=== PATIENT | male | born 1960 | race Caucasian/White ===

== ENCOUNTER → 2017-11-01 16:09 | Outpatient (CLI) | payer OTHER, SELFPAY ==
--- NOTE | 2017-11-01 16:16 | MRI_ITS ---
STUDY: MRI BRAIN WITHOUT CONTRAST REASON FOR EXAM: Male, 57 years old. Dizziness and cephalgia. TECHNIQUE: Standardized multiplanar fat and water weighted pulse sequences were obtained. COMPARISON: None. FINDINGS: There is moderate cerebral atrophy with widening of the extra-axial spaces and ventricular dilatation. There are multiple confluent white matter hyperintensities, distributed throughout the deep white matter tracts of the cerebral hemispheres, consistent with severe chronic white matter ischemic changes. Normal bilateral basal ganglia. Normal thalami. There is no extra-axial fluid accumulation. Normal flow voids within the major intracranial circulation suggesting patency by spin echo criteria. Normal sella turcica, pituitary gland, infundibular stalk, optic chiasm and hypothalamus. Normal tectal plate and pineal gland. Normal midbrain, glenroy and medulla. There is large old infarction in the right cerebellar hemisphere. Small old infarctions are seen in the left cerebellar hemisphere. Normal basal cisterns. Normal bilateral temporal bones. Normal bilateral internal auditory canals. No demonstrated orbital abnormality, within the constraints of a routine brain study. Normal visualized paranasal sinuses. Normal calvarium and skull base. Normal visualized soft tissue structures. Normal visualized upper cervical spine. MRI/Brain without Contrast IMPRESSION: Involutional changes of the brain, as described above. 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 Electronically Signed: Oswaldo Osborn MD at 0:01 EDT Tel , Service support ,
== END ==
PROVIDERS: Family Provider Family Medicine; PCP Family Medicine; Visit Provider Nurse Practitioner Acute Care
DX: R42 Dizziness and giddiness (principal); R51 Headache
CPT/HCPCS: 70551

== ENCOUNTER → 2017-11-07 08:11 | Outpatient (CLI) | payer OTHER, SELFPAY ==
[2017-11-07 10:35] LABS: AST(SGOT) 20 U/L (15-37); Alanine Aminotransfer ALT/SGPT 24 U/L (16-61); Albumin, Serum 3.7 g/dL (3.2-5.0); Alkaline Phosphatase 60 U/L (45-117); Anion Gap 8 (5-15); BUN 22 mg/dL (7-18); BUN/Creat Ratio 26.3 RATIO (10-20); Calcium,Total 9.4 mg/dL (8.5-10.1); Chloride 103 mmol/L (98-107); Cholesterol 177 mg/dL (200); Creatinine, Serum 0.84 mg/dL (0.70-1.30); EST Glomerular Filtration Rate 100 mL/min (>60); Est Glom Filt Rate - Afr Amer 121 mL/min (>60); Globulin 3.7 g/dL (2.2-4.2); Glucose 123 mg/dL (74-106); High Density Lipoprotein 58 mg/dL; Protein, Total 7.4 g/dL (6.4-8.2); Sodium Level 141 mmol/L (136-145); Triglycerides 40 mg/dL; Very Low Density Lipoprotein 8 mg/dL (5-40)
== END ==
PROVIDERS: Family Provider Family Medicine; PCP Family Medicine; Visit Provider Family Medicine
DX: E11.9 Type 2 diabetes mellitus without complications (principal)
CPT/HCPCS: 36415; 80053; 80061

== ENCOUNTER 2018-04-15 15:30 | Outpatient (RCR) | payer OTHER, SELFPAY ==
--- NOTE | 2018-03-11 16:52 | HP.PTEVAL_ITS ---
Patient's Visit Information JOE RUIZ is a 58 year old M referred to Physical Therapy by Junior Huerta with a diagnosis of R shld weakness and h/o CVA in 2016. Date of Evaluation: 03/11/18 Physical Therapist: Carlie Kulkarni - Visit Plan Frequency: 2x /Week Duration: 4 Weeks Plan: 2X/ week for 4 weeks for R Shld PROM (especially IR/ER), AAROM, AROM, scapular strength, RC strength with HEP and modalities if needed - Subjective Findings: Pt has been having touble with R RC for about 5 years now. He started noticing it with working with a lot of lifting and it started to get harder for him to lift. Feel pain on the lateral side of the arm with lifting and cant raise arm greater than 90 degrees without pain. He has no pain with his R arm being stationary..... Hard to fall asleep as he will have to move it . It does not wake him up at night. He is R handed. He does more lifting with his L hand now due to the pain. No N&T. He has some neck pain but it iis not related. 2 years ago he had a stroke and had PT. It basically just affect equalibrium. - Pain R arm pain Pain Intensity (Out of 10): 3 - Objective R shld AROM: flex 106, shld abd 95, 20 degrees ER. L shld AROM: flex 150, abd 155, IR T12, 35 degrees ER. R shld MMT: ER 3+/5, IR 4-/5, Flex and abd 4-/5 within available ROM. L shld MMT ER, IR , Flex, ABd 4+/5. Able to move R shoulder PROm greater than AROM especially overhead motions. Tight R PROM IR and ER with increase pain at both end ranges. + empty can in avaiable range for weakness and some pain. + Bilat scapular winging. Palpation: tender under R acromion and R deltioid area. Pt has +scapular winging (R worse than L) - Goals Goal 1:: I HEP Goal Time Frame: 4-6 Weeks Goal 2:: Decrease R shld pain to less than 1/10 with using his R arm with ADL's and light lifting Goal Time Frame: 4-6 Weeks Goal 3:: Increase R shoulder AROM (at time of eval: flex 106, shld abd 95, 20 degrees ER) Goal Time Frame: 4-6 Weeks Goal 4:: Increase R shld MMT: ( at time of eval: ER 3+/5, IR 4-/5, Flex and abd 4-/5 within available ROM) Goal Time Frame: 4-6 Weeks - Rehabilitation Potential Rehabilitation Potential: Good - Anticipated Interventions Patient/Client Instruction: Educate patient on: Condition For the Purpose of:: To decrease pain, To increase ROM, To improve nutrient delivery to tissue, To improve muscle performance and motor function, To improve ability to perform ADL's, To increase tolerance to activity/condition/position, To improve performance and independence with ADL's, To improve ability of physical actions for home/community/work/leisure, To improve health of tissue, To decrease soft tissue restriction, To increase flexibility/ROM Therapeutic Exercise to Include: Strength training, Postural training, Flexibilty training, Passive ROM, Active ROM, Scapular Strength/Stabilization For the Purpose of:: To decrease pain, To increase ROM, To improve nutrient delivery to tissue, To improve muscle performance and motor function, To improve ability to perform ADL's, To increase tolerance to activity/condition/position, To improve ability of physical actions for home/community/work/leisure, To i mprove health of tissue, To decrease soft tissue restriction, To increase flexibility/ROM Manual Therapy Techniques to Include: Passive ROM For the Purpose of:: To increase ROM IF ES: Yes Cryotherapy (ice pack, ice massage): Yes For the Purpose of:: To decrease pain Thank you for the opportunity to evaluate your patient. For Medicare and Medicare HMO plans, please review the plan of care and approve it. It will need to be FAXED BACK to us at [phone] for Medicare purposes. For Medicare only, by signing this I certify the plan of care. Please let me know if there are questions or concerns regarding this plan of care. Physician Signature: Date:
--- NOTE | 2018-04-15 16:05 | HP.PTDCSUM ---
HP - PT D/C Summary It has been my pleasure to treat JOE RUIZ under orders from Yimi Huerta MD, for the diagnosis of R shld weakness and h/o CVA in 2016 for a total of 5 visit(s). Discharge Date: 04/15/18 Please see the following information for a summary of their discharge status. - Subjective Subjective: Pt reports that his back muscles...points to mid trap region is painful. he reports that he can reach behind him without an issue. Pt wishes to continue with HEP - Pain R arm pain Pain Intensity (Out of 10): 3 mid trap pain Pain Intensity (Out of 10): 7 - Overall Improvement % Improvement: 80 - Objective Objective/Function: R shld AROM: 124 degrees flexion, 130 degrees abd, ER 45 degrees, PSIS IR. Tight R mid trap....did some MT and it reduced some in tightness - Goals Goal 1:: I HEP Goal Progress: Goal Met Goal 2:: Decrease R shld pain to less than 1/10 with using his R arm with ADL's and light lifting Goal Progress: Progressing Goal 3:: Increase R shoulder AROM (at time of eval: flex 106, shld abd 95, 20 degrees ER) Goal Progress: Goal Met Goal 4:: Increase R shld MMT: ( at time of eval: ER 3+/5, IR 4-/5, Flex and abd 4-/5 within available ROM) Goal Progress: Progressing - Plan Plan: 2X/ week for 4 weeks for R Shld PROM (especially IR/ER), AAROM, AROM, scapular strength, RC strength with HEP and modalities if needed - D/C Information Discharge Comments: DC PT to HEP per pt request to do HEP If there are questions or concerns regarding this patient's physical therapy, please feel free to call me at [phone]. Thank you for the referral of this patient. Sincerely, Carlie Kulkarni, MPT
== END 2018-04-15 19:00 | disposition home or self-care (01) ==
LOC: PT 15:30
PROVIDERS: Family Provider Family Medicine; PCP Family Medicine; Referring Provider Family Medicine; Visit Provider Family Medicine
DX: R29.898 Other symptoms and signs involving the musculoskeletal system (principal); Z86.73 Personal history of transient ischemic attack (TIA), and cerebral infarction without residual deficits
CPT/HCPCS: 97110; 97140; 97161; 97530

== ENCOUNTER → 2018-05-07 16:15 | Outpatient (CLI) | payer OTHER, SELFPAY ==
[2018-05-07 18:21] LABS: ALB/GLOB Ratio 1.1 RATIO (0.9-2.4); AST(SGOT) 13 U/L (15-37); Alanine Aminotransfer ALT/SGPT 23 U/L (16-61); Albumin, Serum 3.8 g/dL (3.2-5.0); Alkaline Phosphatase 83 U/L (45-117); Anion Gap 8 (5-15); BUN 24 mg/dL (7-18); BUN/Creat Ratio 31.2 RATIO (10-20); Calcium,Total 9.5 mg/dL (8.5-10.1); Chloride 104 mmol/L (98-107); Cholesterol 175 mg/dL (200); Creatinine, Serum 0.77 mg/dL (0.70-1.30); EST Glomerular Filtration Rate 110 mL/min (>60); Est Glom Filt Rate - Afr Amer 133 mL/min (>60); Globulin 3.5 g/dL (2.2-4.2); Glucose 124 mg/dL (74-106); High Density Lipoprotein 54 mg/dL; Potassium 4.4 mmol/L (3.5-5.1); Protein, Total 7.3 g/dL (6.4-8.2); Sodium Level 140 mmol/L (136-145); Thyroid Stim Hormone (TSH) 2.34 uIU/mL (0.358-3.74); Triglycerides 107 mg/dL; Very Low Density Lipoprotein 21 mg/dL (5-40)
== END ==
PROVIDERS: Family Provider Family Medicine; PCP Family Medicine; Visit Provider Family Medicine
DX: E11.9 Type 2 diabetes mellitus without complications (principal)
CPT/HCPCS: 36415; 80053; 80061; 84403; 84443

== ENCOUNTER → 2019-04-21 08:00 | Outpatient (CLI) | payer OTHER, SELFPAY ==
[2019-04-21 10:56] LABS: AST(SGOT) 15 U/L (15-37); Alanine Aminotransfer ALT/SGPT 22 U/L (16-61); Albumin, Serum 3.7 g/dL (3.2-5.0); Alkaline Phosphatase 68 U/L (45-117); Anion Gap 5 (5-15); BUN 23 mg/dL (7-18); BUN/Creat Ratio 24.5 RATIO (10-20); Calcium,Total 9.5 mg/dL (8.5-10.1); Chloride 104 mmol/L (98-107); Cholesterol 181 mg/dL (200); Creatinine, Serum 0.94 mg/dL (0.70-1.30); EST Glomerular Filtration Rate 87 mL/min (>60); Est Glom Filt Rate - Afr Amer 106 mL/min (>60); Globulin 3.8 g/dL (2.2-4.2); Glucose 161 mg/dL (74-106); High Density Lipoprotein 56 mg/dL; PSA,Total - Annual Screen 0.81 ng/mL (0.00-4.00); Potassium 4.4 mmol/L (3.5-5.1); Protein, Total 7.5 g/dL (6.4-8.2); Sodium Level 138 mmol/L (136-145); Triglycerides 66 mg/dL; Very Low Density Lipoprotein 13 mg/dL (5-40)
== END ==
PROVIDERS: Family Provider Family Medicine; PCP Family Medicine; Referring Provider Family Medicine; Visit Provider Family Medicine
DX: E11.9 Type 2 diabetes mellitus without complications (principal); Z12.5 Encounter for screening for malignant neoplasm of prostate
CPT/HCPCS: 36415; 80053; 80061; 84153; G0103

== ENCOUNTER → 2020-01-19 12:29 | Outpatient (CLI) | payer OTHER, SELFPAY ==
--- NOTE | 2020-01-19 12:48 | RAD_ITS ---
STUDY: X-RAY - LUMBAR SPINE REASON FOR EXAM: Male, 59 years old. fall, low back pain, bilat feet numbness TECHNIQUE: 5 view(s) of the lumbar spine were obtained. COMPARISON: None FINDINGS: Normal lumbar lordosis. There is no substantial scoliosis. There is a normal alignment of the vertebrae. Normal vertebral bodies and endplates. Normal disc space heights. The soft tissue structures are unremarkable. RAD/L/S Spine Min 4 Views IMPRESSION: Normal x-ray examination of the lumbar spine. Electronically Signed: Cesar Saenz, at 10:28 EDT Tel , Service support ,
== END ==
LOC: MTRAD 12:30
PROVIDERS: PCP Family Medicine; Referring Provider Family Medicine; Visit Provider Family Medicine
DX: M54.9 Dorsalgia, unspecified (principal)
CPT/HCPCS: 72110

== ENCOUNTER → 2020-03-04 08:05 | Outpatient (CLI) | payer OTHER, SELFPAY ==
[2020-03-04 11:10] LABS: AST(SGOT) 16 U/L (15-37); Alanine Aminotransfer ALT/SGPT 24 U/L (16-61); Albumin, Serum 3.6 g/dL (3.2-5.0); Alkaline Phosphatase 72 U/L (45-117); Anion Gap 3 (5-15); BUN 20 mg/dL (7-18); BUN/Creat Ratio 21.8 RATIO (10-20); Calcium,Total 9.3 mg/dL (8.5-10.1); Chloride 105 mmol/L (98-107); Cholesterol 173 mg/dL (200); Creatinine, Serum 0.92 mg/dL (0.70-1.30); EST Glomerular Filtration Rate 89 mL/min (>60); Est Glom Filt Rate - Afr Amer 108 mL/min (>60); Globulin 3.6 g/dL (2.2-4.2); Glucose 159 mg/dL (74-106); High Density Lipoprotein 52 mg/dL; Potassium 4.1 mmol/L (3.5-5.1); Protein, Total 7.2 g/dL (6.4-8.2); Sodium Level 138 mmol/L (136-145); Triglycerides 63 mg/dL; Very Low Density Lipoprotein 13 mg/dL (5-40)
== END ==
PROVIDERS: PCP Family Medicine; Referring Provider Family Medicine; Visit Provider Family Medicine
DX: E78.5 Hyperlipidemia, unspecified (principal)
CPT/HCPCS: 36415; 80053; 80061

== ENCOUNTER 2020-03-08 15:30 | Outpatient (RCR) | payer OTHER, SELFPAY ==
--- NOTE | 2020-02-03 09:41 | HP.PTEVAL_ITS ---
Patient's Visit Information JOE RUIZ is a 59 year old M referred to Physical Therapy by Dr. Yimi Huerta MD with a diagnosis of BACK ACHE. Date of Evaluation: 02/03/20 Physical Therapist: Brian Forte, PT, Cert MDT, OCS - Visit Plan Frequency: 2x /Week Duration: 4 Weeks Plan: PT INTERVENTIONS MARK EX'S,POSTURAL EX'S,MANUAL THERAPY ,PROGRESS TO DLS ABD /BACK ,MODALTIES - Subjective This 59 y/o male presents to physical therapy with back pain.Patient has LBP for 5 years. Patient symptoms inscidous onset of pain. Patient has parathesia knee to foot. Patient seen DR did x-rays -. Patient fall on back 3 years ago at [facility] on ice. Location pain symmtrical lumbar. Aggraveting factors standing ,walking ,lifting bending affects job demands. Patient alleviating factors rest. Bowel/bladder-. Coughing/sneezing-, Patient has had no prior PT . Patient symptoms affects job demnads and housework tasks.Patient symptoms afects QOL. SOCIAL: single. VOCATION: [employer] - Pain Bilateral Back Pain Intensity (Out of 10): 7 Pain Intensity Range: 10 - Objective POSTURE: mild foward posture. GAIT: reciprocal pattern increase foot slap right side from h/o stroke. NEURO: C/O parathesia knee to feet,reflexes L3-4,L4-5,L5-S1 1/3. PALAPTION: symmtrical. MMT: quads/hams 4-/5,hip flexion 3+/5 ,ankle 4/5. LUMBAR ROM: flexion mod severe ,extension mod severe ,side glides mod loss. FLEXABLITY: hams min tight - Special Tests L/S Slump test left side: Negative L/S Slump test right side: Negative L/S Left Straight Leg Raise: Negative L/S Right Straight Leg Raise: Negative Lumbar Standing: Flexion - Mechanical Response: No effect Lumbar Standing: Flexion - Symptoms During Testing: Increases Lumbar Standing: Flexion - Symptoms After Testing: Worse Lumbar Standing: Extension - Mechanical Response: No effect Lumbar Standing: Extension - Symptoms During Testing: Increases Lumbar Standing: Extension - Symptoms After Testing: No worse Lumbar Standing: Right Side Glides - Mechanical Response: No effect Lumbar Standing: Right Side Casa - Symptoms During Testing: No effect Lumbar Standing: Right Side Casa - Symptoms After Testing: No effect Lumbar Standing: Left Side Casa - Mechanical Response: No effect Lumbar Standing: Left Side Casa - Symptoms During Testing: No effect Lumbar Standing: Left Side Casa - Symptoms After Testing: No effect Lumbar Lying: Flexion - Mechanical Response: No effect Lumbar Lying: Flexion - Symptoms During Testing: No effect Lumbar Lying: Flexion - Symptoms After Testing: No effect Lumbar Lying: Extension - Mechanical Response: No effect Lumbar Lying: Extension - Symptoms During Testing: Increases Lumbar Lying: Extension - Symptoms After Testing: Better - Goals Goal 1:: Patient to be I with HEP. Goal Time Frame: 4-6 Weeks Goal 2:: Patient to improve posture/body mechanics for function Goal Time Frame: 4-6 Weeks Goal 3:: Patient to improve lumbar ROM for function of recovery. Goal Time Frame: 4-6 Weeks Goal 4:: Patient to decrease lumbar pain by 50% or > to improve function and QOL Goal Time Frame: 4-6 Weeks Goal 5:: Patient to increase strength of bilateral hips 4-/5 to improve function. Goal Time Frame: 4-6 Weeks Goal 6:: Patient to improve back owestry score by 5 points or > to improve QOL. Goal Time Frame: 4-6 Weeks - Rehabilitation Potential Physical Therapy Diagnosis: This patient has possible derrangement with symptoms worse with flexion and improved with extension and mechanical response with extension and flexion with less pain and improved with posture correction thus benifit from skilled PT. Rehabilitation Potential: Good - Anticipated Interventions Patient/Client Instruction: Educate patient on: Condition, Plan of Care For the Purpose of:: To decrease pain, To increase ROM, To improve muscle performance and motor function, To improve ability to perform ADL's, To increase tolerance to activity/condition/position, To improve performance and independence with ADL's, To improve ability of physical actions for home/community/work/leisure, To improve health of tissue, To decrease soft tissue restriction, To increase flexibility/ROM, To reduce risk of recurrence, To improve ability to perform tasks related to life management Therapeutic Exercise to Include: Strength training, Body mechanics, Postural training, Flexibilty training, Dynamic Lumbar Stabilization, aMrk Exercises For the Purpose of:: To decrease pain, To increase ROM, To improve muscle performance and motor function, To improve ability to perform ADL's, To increase tolerance to activity/condition/position, To improve ability of physical actions for home/community/work/leisure, To improve health of tissue, To decrease soft tissue restriction, To increase flexibility/ROM, To reduce risk of recurrence, To improve ability to perform tasks related to life management TENS: Yes IF ES: Yes Cryotherapy (ice pack, ice massage): Yes Thermo therapy (hot pack): Yes Ultrasound (thermal/non thermal): Yes For the Purpose of:: To decrease pain, To increase ROM, To improve nutrient delivery to tissue, To increase oxygenation perfusion, To improve health of tissue, To decrease soft tissue restriction, To increase flexibility/ROM Thank you for the opportunity to evaluate your patient. For Medicare and Medicare HMO plans, please review the plan of care and approve it. It will need to be FAXED BACK to us at [phone] for Medicare purposes. For Medicare only, by signing this I certify the plan of care. Please let me know if there are questions or concerns regarding this plan of care. Physician Signature: Date:
--- NOTE | 2020-03-08 15:49 | HP.PTDCSUM_ITS ---
It has been my pleasure to treat JOE RUIZ referred by Dr. Yimi Huerta MD, with the diagnosis of BACK ACHE for a total of 9 visit(s). Discharge Date: 03/08/20 Please see the following information for a summary of their discharge status. Subjective: Doing good . Patient able to return to prior level f function and job demnads Bilateral Back Pain Intensity (Out of 10): 0 % Improvement: 95 Objective/Function: POSTURE: mild foward posture. GAIT: reciprocal mild a ntalgic gait. NEURO: intact. MMT: grossly 5/5. LUMBAR ROM: MIN FLEXION/EXTENISON Goal 1:: Patient to be I with HEP. Goal Progress: Goal Met Goal 2:: Patient to improve posture/body mechanics for function Goal Progress: Goal Met Goal 3:: Patient to improve lumbar ROM for function of recovery. Goal Progress: Goal Met Goal 4:: Patient to decrease lumbar pain by 50% or > to improve function and QOL Goal Progress: Goal Met Goal 5:: Patient to increase strength of bilateral hips 4-/5 to improve function. Goal Progress: Goal Met Goal 6:: Patient to improve back owestry score by 5 points or > to improve QOL. Goal Progress: Goal Met Plan: PT INTERVENTIONS MARK EX'S,POSTURAL EX'S,MANUAL THERAPY ,PROGRESS TO DLS ABD /BACK ,MODALTIES Discharge Comments: HEP AND GYM If there are questions or concerns regarding this patient's physical therapy, please feel free to call me at [phone]. Thank you for the referral of this patient. Sincerely, Brian Forte, PT, Cert MDT, OCS
== END 2020-03-08 19:00 | disposition home or self-care (01) ==
LOC: PT 15:30
PROVIDERS: PCP Family Medicine; Referring Provider Family Medicine; Visit Provider Family Medicine
DX: M54.9 Dorsalgia, unspecified (principal)
CPT/HCPCS: 97110; 97162; 97164

== ENCOUNTER → 2020-03-23 | Outpatient (CLI) | payer OTHER, SELFPAY | END | disposition home or self-care (01) | PROVIDERS: PCP Family Medicine; Visit Provider Family Medicine | DX: Z71.89 Other specified counseling (principal) | CPT/HCPCS: 87635; U0003 ==

== ENCOUNTER → 2020-06-01 08:08 | Outpatient (CLI) | payer OTHER, SELFPAY ==
[2020-06-01 10:58] LABS: Cholesterol 184 mg/dL (200); High Density Lipoprotein 58 mg/dL; Triglycerides 50 mg/dL; Very Low Density Lipoprotein 10 mg/dL (5-40)
== END ==
PROVIDERS: PCP Family Medicine; Referring Provider Family Medicine; Visit Provider Family Medicine
DX: E78.5 Hyperlipidemia, unspecified (principal)
CPT/HCPCS: 36415; 80061

== ENCOUNTER 2020-06-21 15:30 | Outpatient (RCR) | payer OTHER, SELFPAY ==
--- NOTE | 2020-05-31 19:01 | HP.PTEVAL ---
Patient's Visit Information JOE RUIZ is a 60 year old M referred to Physical Therapy by RADHA Dc with a diagnosis of Lumbago. Date of Evaluation: 05/31/20 Physical Therapist: MARIA L ArguetaT, OCS, CSCS - Visit Plan Frequency: 3x /Week Duration: 4-6 Weeks Plan: 3x/week for 3-6 weeks for... 1. ext biased L/S AROM exrcises progressing to rotation. 2. HS adn gastroc stretch to HEP. 3. core strength, DLS and LE/postural strength cobining gym and mat exercises as pateint will go to [facility] upon completion. 4. include R DF strength for foot drop/weakness. 5. Body mechanics focus on working toward floor and posture. - Subjective LBP. Hard to get up in morning. Points to central lower back. Feels numby. Legs cn feel numb at times but may have neuropathy from DM. Has had incidence where he could not sit down for amonth a few years ago and the pain comes and goes. Work usualy makes him worse, has to lunge rather than bend. Work typically will make him worse. Works packing and shipping car parts, bends and stadns all day, twists. Pain is rated at 9/10 and causes him to stay hunched over a lot. Notices it upon getting out of car and trying to stand. Has had therapy in the past which helped(back bends). Hurts to bend over and pick things up. Sleep is fine and he sleeps on side. Does job OK it just hurts. Enjoys bowling and working out at work on machines. Dresses self and does own ADLs, Son had to put on socks one time when really bad. - Pain LB Pain Intensity (Out of 10): 0 Pain Intensity Range: 0 - Objective Walks back to PT I, Some pain getting up from chair sitting in post pevic tilted psoition and rounded lumbar spine. Transfer bed and chair I. Steps reciprocal without rail. R foot slap obvious as he walks. LB AROM ext max limited and painful R of midline, flexion tight but not painful, SB min limited and no pain. Tender to palpation PA pressure mid lumbar area...not is soft tissue. LE AROM WFL but HS and gastroc mod tight. AROM R darwin limited to neutral DF and weak in DF at 3+ vs 4+ on L, inv 3+ R and 4- L, PF 4- B. knee flexiona nd ext 4 B, hip abd and ext 4- adn flexion 4 B. reflexes 0/3 patella and achilles. Sensation WNL in B LE to gross light touch. - Balance Scores Functional Gait Assessment Score: 28 % Disability: 6.6700 - Goals Goal 1:: Pain in LB 0-2/10 at all times adn 50% improved overall. Goal Time Frame: 4-6 Weeks Goal 2:: I approp HEP for LB ROM, core adn LE strength including DF Goal Time Frame: 4-6 Weeks Goal 3:: Work without increasing pain Goal Time Frame: 4-6 Weeks - Rehabilitation Potential Physical Therapy Diagnosis: Lumbago, neuropathy, DF weakness R, limited lumbar ROM. Rehabilitation Potential: Fair - Anticipated Interventions Patient/Client Instruction: Educate patient on: Condition, Plan of Care For the Purpose of:: To decrease pain, To increase ROM, To improve muscle performance and motor function Therapeutic Exercise to Include: Strength training, Postural training, Flexibilty training, Neuromotor development, Passive ROM, Active ROM For the Purpose of:: To decrease pain, To increase ROM, To improve muscle performance and motor function, To increase tolerance to activity/condition/position, To improve ability of physical actions for home/community/work/leisure Manual Therapy Techniques to Include: Mobilization, Passive ROM, Soft tissue mobilization For the Purpose of:: To decrease pain, To increase ROM Thank you for the opportunity to evaluate your patient. For Medicare and Medicare HMO plans, please review the plan of care and approve it. It will need to be FAXED BACK to us at [phone] for Medicare purposes. For Medicare only, by signing this I certify the plan of care. Please let me know if there are questions or concerns regarding this plan of care. Physician Signature: Date:
--- NOTE | 2020-08-24 13:19 | HP.PT.NRP ---
JOE RUIZ was seen in my office for initial evaluation on 05/31/20. The following Plan of Care was established for this patient: Initial Frequency: 3x /Week Initial Duration: 4-6 Weeks Patient/Client Instruction: Educate patient on: Condition, Plan of Care For the Purpose of:: To decrease pain, To increase ROM, To improve muscle performance and motor function Therapeutic Exercise to Include: Strength training, Postural training, Flexibilty training, Neuromotor development, Passive ROM, Active ROM For the Purpose of:: To decrease pain, To increase ROM, To improve muscle performance and motor function, To increase tolerance to activity/condition/position, To improve ability of physical actions for home/community/work/leisure Manual Therapy Techniques to Include: Mobilization, Passive ROM, Soft tissue mobilization For the Purpose of:: To decrease pain, To increase ROM This patient was last seen in our office 06/24/20. Pertinent comments regarding their Physical therapy will appear below: Pt seen 6 visits of POC. HE was to continue to work toward I with ex routine. He no showed for his last visits. At this point, it has been over a month adn I will discontinue due to nonattendance. At this point I will be discontinuing this patient from physical therapy. I would be happy to see this patient again in the future if found appropriate by the physician. Thank you! Seng Feng, DPT, OCS, CSCS
== END 2020-06-21 19:00 | disposition home or self-care (01) ==
LOC: PT 15:30
PROVIDERS: PCP Family Medicine; Referring Provider Registered Nurse; Visit Provider Registered Nurse
DX: M54.5 Low back pain (principal)
CPT/HCPCS: 97110; 97162

== ENCOUNTER 2020-06-30 07:56 | Outpatient (RCR) | payer OTHER, SELFPAY | END 2020-06-30 23:59 | disposition home or self-care (01) | LOC: DC 07:56 | PROVIDERS: PCP Family Medicine; Visit Provider Family Medicine | DX: E11.9 Type 2 diabetes mellitus without complications (principal) | CPT/HCPCS: 97802 ==

== ENCOUNTER → 2020-08-04 17:57 | Outpatient (CLI) | payer OTHER, SELFPAY ==
--- NOTE | 2020-08-04 18:15 | MRI_ITS ---
STUDY: MRI LUMBAR SPINE WITHOUT CONTRAST REASON FOR EXAM: Male, 60 years old. lumbago, LBP, bilat buttock pain, numbness TECHNIQUE: Standardized fat and water weighted pulse sequences were obtained in the sagittal and axial planes. COMPARISON: Lumbar spine x-ray dated January 19, 2020 FINDINGS: No visualized compression deformity or fracture active marrow edema. Disc desiccation is present at all levels. Normal lumbar lordosis. There is a dextroscoliosis of the lumbar spine. Normal conus medullaris that terminates at the L1 level. L1-2: Normal endplates. Mild disc space narrowing without significant bulging or herniation of the disc. Normal bilateral facet joints. Normal central canal and bilateral lateral recesses. Normal bilateral intervertebral neural foramina. L2-3: Normal endplates. Mild disc space narrowing without significant bulging or herniation of the disc. Normal bilateral facet joints. Normal central canal and bilateral lateral recesses. Normal bilateral intervertebral neural foramina. L3-4: Moderate disc space narrowing with a diffuse disc bulge as well as a slightly superior left paracentral subligamentous disc extrusion causing left lateral recess stenosis and contributing to moderate to severe central canal stenosis. A second right paracentral superior disc extrusion is present contributing to right lateral recess stenosis as well as compression of the exiting nerve root at the neural foramen. The facet joints are mildly hypertrophied. Moderate bilateral foraminal stenosis with nerve root compression is present. L4-5: Normal endplates. Mild to moderate disc space narrowing without significant bulging or herniation of the disc. Mild central canal stenosis is present due to moderate facet joint hypertrophy. Normal bilateral lateral recesses. Normal bilateral intervertebral neural foramina. L5-S1: Normal endplates. Normal disc height and morphology. The facet joints are mildly to moderately hypertrophied as well as ligamenta flava contributing to mild central canal stenosis. Normal bilateral lateral recesses. Normal bilateral intervertebral neural foramina. Normal visualized sacral ala. Normal visualized paraspinous soft tissue structures. MRI/Spine Lumbar (Routine) IMPRESSION: 1. L3-L4 =Moderate disc space narrowing with a diffuse disc bulge as well as a slightly superior left paracentral subligamentous disc extrusion causing left lateral recess stenosis and contributing to moderate to severe central canal stenosis. A second right paracentral superior disc extrusion is present contributing to right lateral recess stenosis as well as compression of the exiting nerve root at the neural foramen. The facet joints are mildly hypertrophied. 2. Mild central canal stenosis at L4-L5 and L5-S1 Electronically Signed: Rodney Cornejo MD at 20:23 EDT , Service support ,
== END ==
LOC: MRI 17:57
PROVIDERS: PCP Family Medicine; Referring Provider Family Medicine; Visit Provider Family Medicine
DX: M51.26 Other intervertebral disc displacement, lumbar region (principal); M48.061 Spinal stenosis, lumbar region without neurogenic claudication
CPT/HCPCS: 72148

== ENCOUNTER → 2021-12-07 | Outpatient (CLI) | payer OTHER, SELFPAY ==
[2021-12-07 10:56] LABS: ALB/GLOB Ratio 0.9 RATIO (0.9-2.4); AST(SGOT) 16 U/L (15-37); Alanine Aminotransfer ALT/SGPT 24 U/L (16-61); Albumin, Serum 3.7 g/dL (3.2-5.0); Alkaline Phosphatase 79 U/L (45-117); Anion Gap 7 (5-15); BUN 22 mg/dL (7-18); BUN/Creat Ratio 24.7 RATIO (10-20); Calcium,Total 9.6 mg/dL (8.5-10.1); Chloride 104 mmol/L (98-107); Cholesterol 161 mg/dL (200); Creatinine, Serum 0.89 mg/dL (0.70-1.30); EST Glomerular Filtration Rate 92 mL/min (>60); Est Glom Filt Rate - Afr Amer 111 mL/min (>60); Globulin 3.9 g/dL (2.2-4.2); Glucose 179 mg/dL (74-106); High Density Lipoprotein 51 mg/dL; Potassium 4.5 mmol/L (3.5-5.1); Protein, Total 7.6 g/dL (6.4-8.2); Sodium Level 140 mmol/L (136-145); Thyroid Stim Hormone (TSH) 2.03 uIU/mL (0.358-3.74); Triglycerides 47 mg/dL; Very Low Density Lipoprotein 9 mg/dL (5-40)
== END | disposition home or self-care (01) ==
LOC: MFPLAB 08:12
PROVIDERS: PCP Family Medicine; Visit Provider Family Medicine
DX: E11.9 Type 2 diabetes mellitus without complications (principal)
CPT/HCPCS: 36415; 80053; 80061; 84153; 84443; G0103

== ENCOUNTER → 2022-11-16 | Outpatient (CLI) | payer OTHER, SELFPAY ==
[2022-11-16 10:07] LABS: Hematocrit 48.4 % (40-54); Hemoglobin 15.2 g/dL (13.0-16.5); Mean Corp Hgb Conc 31.4 g/dL (32-36); Mean Corpuscular Hgb 29.1 pg (27.0-32.0); Mean Corpuscular Volume 92.5 fL (80-94); Mean Platelet Vol. 10.4 fl (6.2-12.0); Platelet Count 227 K/mm3 (150-450); RBC Distribution Width CV 13.4 % (11.6-14.6); RBC Distribution Width SD 45.1 fl (35.1-43.9); Red Blood Count 5.23 M/mm3 (4.6-6.2); White Blood Count 6.2 K/mm3 (4.4-11.0)
[2022-11-16 10:29] LABS: Vitamin B12 519 pg/mL (211-911)
[2022-11-16 11:01] LABS: ALB/GLOB Ratio 1.2 RATIO (0.9-2.4); AST(SGOT) 18 U/L (15-37); Alanine Aminotransfer ALT/SGPT 24 U/L (16-61); Albumin, Serum 3.9 g/dL (3.2-5.0); Alkaline Phosphatase 80 U/L (45-117); Anion Gap 4 (5-15); BUN 25 mg/dL (7-18); BUN/Creat Ratio 28.1 RATIO (10-20); Calcium,Total 9.3 mg/dL (8.5-10.1); Chloride 104 mmol/L (98-107); Cholesterol 182 mg/dL (200); Creatinine, Serum 0.89 mg/dL (0.70-1.30); EST Glomerular Filtration Rate 91 mL/min (>60); Est Glom Filt Rate - Afr Amer 111 mL/min (>60); Globulin 3.3 g/dL (2.2-4.2); Glucose 111 mg/dL (74-106); High Density Lipoprotein 55 mg/dL; Potassium 4.7 mmol/L (3.5-5.1); Protein, Total 7.2 g/dL (6.4-8.2); Sodium Level 137 mmol/L (136-145); Thyroid Stim Hormone (TSH) 2.84 uIU/mL (0.358-3.74); Triglycerides 45 mg/dL; Very Low Density Lipoprotein 9 mg/dL (5-40)
== END | disposition home or self-care (01) ==
LOC: MFPLAB 08:08
PROVIDERS: PCP Family Medicine; Visit Provider Family Medicine
DX: E11.9 Type 2 diabetes mellitus without complications (principal); Z86.73 Personal history of transient ischemic attack (TIA), and cerebral infarction without residual deficits
CPT/HCPCS: 36415; 80053; 80061; 82607; 84403; 84443; 85027

== ENCOUNTER → 2024-05-22 | Outpatient (CLI) | payer MEDICARE, SELFPAY ==
[2024-05-22 10:33] LABS: Hematocrit 47.2 % (40-54); Hemoglobin 15.4 g/dL (13.0-16.5); Mean Corp Hgb Conc 32.6 g/dL (32-36); Mean Corpuscular Hgb 29.4 pg (27.0-32.0); Mean Corpuscular Volume 90.2 fL (80-94); Mean Platelet Vol. 10.4 fl (6.2-12.0); Platelet Count 311 K/mm3 (150-450); RBC Distribution Width CV 12.8 % (11.6-14.6); RBC Distribution Width SD 42.1 fl (35.1-43.9); Red Blood Count 5.23 M/mm3 (4.6-6.2); White Blood Count 7.1 K/mm3 (4.4-11.0)
[2024-05-22 11:04] LABS: ALB/GLOB Ratio 0.8 RATIO (0.9-2.4); AST(SGOT) 13 U/L (15-37); Alanine Aminotransfer ALT/SGPT 23 U/L (16-61); Albumin, Serum 3.5 g/dL (3.2-5.0); Alkaline Phosphatase 99 U/L (45-117); Anion Gap 6 (5-15); BUN 20 mg/dL (7-18); BUN/Creat Ratio 20.8 RATIO (10-20); Calcium,Total 9.5 mg/dL (8.5-10.1); Chloride 104 mmol/L (98-107); Cholesterol 183 mg/dL (200); Creatinine, Serum 0.96 mg/dL (0.70-1.30); EST Glomerular Filtration Rate 83 mL/min (>60); Est Glom Filt Rate - Afr Amer 101 mL/min (>60); Globulin 4.2 g/dL (2.2-4.2); Glucose 176 mg/dL (74-106); High Density Lipoprotein 45 mg/dL; PSA,Total - Annual Screen 1.01 ng/mL (0.00-4.00); Protein, Total 7.7 g/dL (6.4-8.2); Sodium Level 139 mmol/L (136-145); Triglycerides 85 mg/dL; Very Low Density Lipoprotein 17 mg/dL (5-40)
[2024-05-22 11:05] LABS: Microalbumin,Random Urine 11.2 mg/L (NO RANGE EST.); Microalbumin:Creatinine Ratio 18.4 mg/g CRE (<30 mg/g CRE)
[2024-05-22 11:33] LABS: Hepatitis C Antibody Non-Reactive (Nonreactive)
== END | disposition home or self-care (01) ==
LOC: MFPLAB 08:19
PROVIDERS: PCP Family Medicine; Referring Provider Family Medicine; Visit Provider Family Medicine
DX: E11.40 Type 2 diabetes mellitus with diabetic neuropathy, unspecified (principal); Z12.5 Encounter for screening for malignant neoplasm of prostate
CPT/HCPCS: 36415; 80053; 80061; 82043; 82570; 84153; 84403; 84443; 85027; 86803; G0103

== ENCOUNTER 2024-06-22 10:54 | Outpatient (RCR) | payer MEDICARE, SELFPAY | END 2024-07-06 23:59 | LOC: NS 10:54 | PROVIDERS: PCP Family Medicine; Referring Provider Family Medicine; Visit Provider Family Medicine | DX: Z71.3 Dietary counseling and surveillance (principal); E11.9 Type 2 diabetes mellitus without complications | CPT/HCPCS: 97802 ==